=== PATIENT | female | born 1985 | race Caucasian/White ===

== ENCOUNTER 2021-08-17 01:24 | Emergency (ER) | payer MEDICAID, SELFPAY ==
[2021-08-17] VITALS (12 sets, daily range): BP systolic 83–117; BP diastolic 47–80; PULSE 73–107; RESP 11–18; TEMP 37.1; O2SAT 98–100; BMI 19.0
--- NOTE | ~2021-08-17 | CT_ITS ---
EXAMINATION: CT HEAD WITHOUT CONTRAST CT CERVICAL SPINE WITHOUT CONTRAST CLINICAL INFORMATION: Fall COMPARISON: None. TECHNIQUE: Multidetector CT imaging of the head and cervical spine was performed without the use of intravenous contrast. Multiplanar reformats are reviewed. This CT examination was performed using dose optimization techniques as appropriate, variously including the following: *Automated exposure control *Adjustment of mA and/or kV according to patient size (this includes techniques or standardized protocols for targeted exams where dose is matched to indication/reason for exam; i.e. extremities or head) *Use of iterative reconstruction technique DLP: 1108 mGy-cm. FINDINGS: There is no evidence of acute intracranial hemorrhage or territorial infarction. No abnormal mass effect or midline shift is seen. [place] to white matter differentiation is well preserved. No extra-axial fluid collections are identified. The ventricles are normal in size. There is no abnormal attenuation within the brain parenchyma. The osseous structures and soft tissues are normal. The mastoid air cells and visualized portions of the paranasal sinuses are well-aerated. Motion artifact mildly limits assessment of C3 and C4. Atlantooccipital alignment is maintained. The vertebral bodies and posterior elements align normally. No acute fracture or subluxation. Vertebral body heights are maintained. No significant degenerative changes are appreciated. No central canal or foraminal narrowing. The paraspinal soft tissues are unremarkable. The imaged lung apices are clear CT/CT head/brain wo con IMPRESSION: No acute intracranial pathology. No cervical spine fracture or malalignment.
--- NOTE | ~2021-08-17 | XR_ITS ---
EXAMINATION: XR CHEST CLINICAL INFORMATION: Pain. COMPARISON: None TECHNIQUE: Frontal view of the chest was obtained. FINDINGS: Normal symmetric lung volumes. No parenchymal consolidation. No pleural effusion. No pneumothorax. Cardiomediastinal silhouette and pulmonary vascularity are within normal limits. No acute osseous abnormalities. XR/XR chest 1V IMPRESSION: No acute findings
--- NOTE | ~2021-08-17 | CT_ITS ---
EXAMINATION: CT HEAD WITHOUT CONTRAST CT CERVICAL SPINE WITHOUT CONTRAST CLINICAL INFORMATION: Fall COMPARISON: None. TECHNIQUE: Multidetector CT imaging of the head and cervical spine was performed without the use of intravenous contrast. Multiplanar reformats are reviewed. This CT examination was performed using dose optimization techniques as appropriate, variously including the following: *Automated exposure control *Adjustment of mA and/or kV according to patient size (this includes techniques or standardized protocols for targeted exams where dose is matched to indication/reason for exam; i.e. extremities or head) *Use of iterative reconstruction technique DLP: 1108 mGy-cm. FINDINGS: There is no evidence of acute intracranial hemorrhage or territorial infarction. No abnormal mass effect or midline shift is seen. [place] to white matter differentiation is well preserved. No extra-axial fluid collections are identified. The ventricles are normal in size. There is no abnormal attenuation within the brain parenchyma. The osseous structures and soft tissues are normal. The mastoid air cells and visualized portions of the paranasal sinuses are well-aerated. Motion artifact mildly limits assessment of C3 and C4. Atlantooccipital alignment is maintained. The vertebral bodies and posterior elements align normally. No acute fracture or subluxation. Vertebral body heights are maintained. No significant degenerative changes are appreciated. No central canal or foraminal narrowing. The paraspinal soft tissues are unremarkable. The imaged lung apices are clear CT/CT cervical spine wo con IMPRESSION: No acute intracranial pathology. No cervical spine fracture or malalignment.
--- NOTE | 2021-08-17 01:32 | ECG_ITS ---
Test Reason : ALTERED MENTAL STATUS Blood Pressure : / mmHG Vent. Rate : 088 BPM Atrial Rate : 088 BPM P-R Int : 138 ms QRS Dur : 084 ms QT Int : 392 ms P-R-T Axes : 054 033 034 degrees QTc Int : 474 ms Normal sinus rhythm Normal ECG No previous ECGs available Referred By: Melody Escalera Electronically Signed By:CHRISTOPHER CASTELLANO
--- NOTE | 2021-08-17 01:34 | ED_ITS ---
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 Tonight she had one shot of alcohol. Witnesses states they saw her have syncopal event with LOC 1.5 minutes. Pupils were dilated. EMS states the patient also had agonal breathing. They saw her face tighten up to the right and felt it was a focal motor seizure so the patient was given 2mg of versed. Patient has no tongue biting, no incontinence. Given 500cc of NS as well. MD complaint: altered mental status Onset (ago): minute(s) (prior to arrival ) Timing confirmed by: other (bystanders and boyfriend) Severity: severe Consistency of symptoms: constant Context: other (did drink tonight, recent overdose and resulting seizure, only on zoloft now) Associated symptoms: other (facial twitching LOC) Treatments prior to arrival: other (versed 2mg, IVF) Related Data Allergies Allergy/AdvReac Type Severity Reaction Status Date / Time No Known Allergies Allergy Verified 08/17/21 01:31 Review of Systems 2 Review of Systems: ROS unable to be obtained due to altered mental status [facility] Past Medical History Medical History Depression Suicide attempt Social History Social History (Updated 08/17/21 @ 01:35 by Melody Escalera DO) Alcohol intake: current Patient Tobacco Use Status: Tobacco use Unknown Advance Directives: No Physical Exam ED Vital Signs: Vital Signs - 24 hr 08/17/21 01:39 08/17/21 03:10 Temperature 98.7 F Pulse Rate 81 73 Respiratory Rate 16 15 Blood Pressure 117/80 88/48 L Pulse Oximetry 100 100 BMI result Body Mass Index 19.0 Appearance: Somnolent. Nonverbal, able to cough, Moderate acute distress. Eyes: Dilated pupils equal, round and reactive to light 5mm ENT: Pharynx normal. Atraumatic in appearance. Neck: Normal inspection. Neck supple. CVS: Normal heart rate and rhythm. Pulses normal. Respiratory: No respiratory distress. Breath sounds normal. Abdomen: Soft and nontender. Skin: Skin warm and dry. Normal skin color. Normal skin turgor. Extremities: No lower extremity edema. No calf ttp Neuro: diffusely hypotonic, sedated after versed, no twitching noted. Course Course Course Narrative: [facility] records: 06/23 discharge aspiration pneumonia, benzo withdrawal and seizures started on depakote per boyfriend she has not been taking her depakote also on Sunday she passed out but did not have a seizure BP low due to ETOH intoxication Patient placed in physician observation at 345am. The indication for observation is that the patient needs more time to metabolize ETOH. At this time the patient is intoxicated, lungs clear, CV RRR, abd nontender, somnolent. MDM - Altered Mental Status MDM Narrative Medical decision making narrative: 36 yo female with hx of depression, drank ETOH tonight, recent seizure post overdose comes in with AMS, possible syncope and also reported abnormal facial movement characterized by EMS as a focal motor seizure and given versed. She is now very sedated and hypotonic. she is able to cough, no tongue biting no incontinence. full tox/metabolic workup along with EKG. CT head/cspine for syncopal event to rule out trauma. Will observe clinically. Dispo per results and findings. Possible intoxication vs overdose vs postictal state though if it was focal motor I would not suspect the patient to have such an overall confused state and bystanders reported syncope not seizure activity to EMS. Lab Data Result diagrams: 08/17/21 02:13 08/17/21 02:14 Labs: Lab Results 08/17/21 08/17/21 08/17/21 Range/Units 02:13 02:13 02:13 WBC 4.8 (4.8-10.8) X10*3/uL RBC 4.39 (4.20-5.50) X10*6/uL Hgb 11.3 L (12.0-16.0) g/dl Hct 35.0 L (37.0-47.0) % MCV 79.7 L (80.0-98.0) fL MCH 25.7 L (27.0-33.0) pg MCHC 32.3 (31.0-35.0) g/dl RDW 22.4 H (11.0-16.0) % Plt Count 252 (160-400) X10*3/uL MPV 8.4 L (9.4-12.3) fL Immature Gran % (Auto) 0.2 (0.0-0.4) % Neut % (Auto) 51.6 (45-73) % Lymph % (Auto) 38.9 (20-40) % [place] % (Auto) 7.8 (2-11) % Eos % (Auto) 1.1 (0-4) % Baso % (Auto) 0.4 (0-2) % Lymph # (Auto) 1.9 (1.2-4.9) X10*3/uL [place] # (Auto) 0.4 (0.1-1.2) X10*3/uL Eos # (Auto) 0.1 (0.0-0.4) X10*3/uL Baso # (Auto) 0.0 (0.0-0.2) X10*3/uL Abs Immat Gran (auto) 0.01 (0.00-0.03) X10*3/uL Absolute Neuts (auto) 2.5 (2.0-8.3) x10*3/uL Absolute Nucleated RBC 0.000 (0.0-0.012) X10*3/uL Nucleated RBC % (auto) 0.0 (0.0-0.2) /100WBC PT 11.0 (9.9-13.0) SEC INR 1.0 (0.9-1.1) Sodium (135-145) mmol/L Potassium (3.3-5.1) mmol/L Chloride (96-108) mmol/L Carbon Dioxide (22-29) mmol/L Anion Gap (12-20) BUN (9-16) mg/dL Creatinine (0.5-1.4) mg/dL Estim Creat Clear Calc Estimated GFR Random Glucose (60-115) mg/dL Calcium (8.4-10.2) mg/dL Magnesium (1.6-2.6) mg/dL Total Bilirubin (0.0-1.0) mg/dL Direct Bilirubin (0.0-0.5) mg/dL AST (5-31) U/L ALT (0-31) U/L Alkaline Phosphatase (39-117) U/L Ammonia (13-55) umol/L Total Creatine Kinase (26-140) U/L Troponin I High Sens (<3.5-17.0) ng/L Total Protein (6.5-8.0) g/dL Albumin (3.5-5.0) g/dL Lipase (8-78) U/L Beta HCG, Quant mIU/mL Salicylates (15-30) mg/dL Acetaminophen (<30) mcg/mL Valproic Acid (50.0-100.0) mcg/mL Ethyl Alcohol mg/dL COVID-19 (RICHARD) Negative (Negative) COVID-19 Clin Com See Note 08/17/21 08/17/21 08/17/21 Range/Units 02:13 02:13 02:13 WBC (4.8-10.8) X10*3/uL RBC (4.20-5.50) X10*6/uL Hgb (12.0-16.0) g/dl Hct (37.0-47.0) % MCV (80.0-98.0) fL MCH (27.0-33.0) pg MCHC (31.0-35.0) g/dl RDW (11.0-16.0) % Plt Count (160-400) X10*3/uL MPV (9.4-12.3) fL Immature Gran % (Auto) (0.0-0.4) % Neut % (Auto) (45-73) % Lymph % (Auto) (20-40) % [place] % (Auto) (2-11) % Eos % (Auto) (0-4) % Baso % (Auto) (0-2) % Lymph # (Auto) (1.2-4.9) X10*3/uL [place] # (Auto) (0.1-1.2) X10*3/uL Eos # (Auto) (0.0-0.4) X10*3/uL Baso # (Auto) (0.0-0.2) X10*3/uL Abs Immat Gran (auto) (0.00-0.03) X10*3/uL Absolute Neuts (auto) (2.0-8.3) x10*3/uL Absolute Nucleated RBC (0.0-0.012) X10*3/uL Nucleated RBC % (auto) (0.0-0.2) /100WBC PT (9.9-13.0) SEC INR (0.9-1.1) Sodium (135-145) mmol/L Potassium (3.3-5.1) mmol/L Chloride (96-108) mmol/L Carbon Dioxide (22-29) mmol/L Anion Gap (12-20) BUN (9-16) mg/dL Creatinine (0.5-1.4) mg/dL Estim Creat Clear Calc Estimated GFR Random Glucose (60-115) mg/dL Calcium (8.4-10.2) mg/dL Magnesium (1.6-2.6) mg/dL Total Bilirubin (0.0-1.0) mg/dL Direct Bilirubin (0.0-0.5) mg/dL AST (5-31) U/L ALT (0-31) U/L Alkaline Phosphatase (39-117) U/L Ammonia (13-55) umol/L Total Creatine Kinase (26-140) U/L Troponin I High Sens < 3.5 (<3.5-17.0) ng/L Total Protein (6.5-8.0) g/dL Albumin (3.5-5.0) g/dL Lipase (8-78) U/L Beta HCG, Quant < 2 mIU/mL Salicylates (15-30) mg/dL Acetaminophen (<30) mcg/mL Valproic Acid (50.0-100.0) mcg/mL Ethyl Alcohol 497 H* mg/dL COVID-19 (RICHARD) (Negative) COVID-19 Clin Com 08/17/21 08/17/21 08/17/21 Range/Units 02:13 02:14 02:32 WBC (4.8-10.8) X10*3/uL RBC (4.20-5.50) X10*6/uL Hgb (12.0-16.0) g/dl Hct (37.0-47.0) % MCV (80.0-98.0) fL MCH (27.0-33.0) pg MCHC (31.0-35.0) g/dl RDW (11.0-16.0) % Plt Count (160-400) X10*3/uL MPV (9.4-12.3) fL Immature Gran % (Auto) (0.0-0.4) % Neut % (Auto) (45-73) % Lymph % (Auto) (20-40) % [place] % (Auto) (2-11) % Eos % (Auto) (0-4) % Baso % (Auto) (0-2) % Lymph # (Auto) (1.2-4.9) X10*3/uL [place] # (Auto) (0.1-1.2) X10*3/uL Eos # (Auto) (0.0-0.4) X10*3/uL Baso # (Auto) (0.0-0.2) X10*3/uL Abs Immat Gran (auto) (0.00-0.03) X10*3/uL Absolute Neuts (auto) (2.0-8.3) x10*3/uL Absolute Nucleated RBC (0.0-0.012) X10*3/uL Nucleated RBC % (auto) (0.0-0.2) /100WBC PT (9.9-13.0) SEC INR (0.9-1.1) Sodium 145 (135-145) mmol/L Potassium 3.4 (3.3-5.1) mmol/L Chloride 110 H (96-108) mmol/L Carbon Dioxide 21 L (22-29) mmol/L Anion Gap 17 (12-20) BUN 17 H (9-16) mg/dL Creatinine 0.70 (0.5-1.4) mg/dL Estim Creat Clear Calc 97.5 Estimated GFR > 60 Random Glucose 92 (60-115) mg/dL Calcium 8.7 (8.4-10.2) mg/dL Magnesium 1.8 (1.6-2.6) mg/dL Total Bilirubin 0.2 (0.0-1.0) mg/dL Direct Bilirubin < 0.2 (0.0-0.5) mg/dL AST 28 (5-31) U/L ALT 26 (0-31) U/L Alkaline Phosphatase 40 (39-117) U/L Ammonia 16 (13-55) umol/L Total Creatine Kinase 82 (26-140) U/L Troponin I High Sens (<3.5-17.0) ng/L Total Protein 6.3 L (6.5-8.0) g/dL Albumin 3.9 (3.5-5.0) g/dL Lipase 18 (8-78) U/L Beta HCG, Quant mIU/mL Salicylates < 5.0 L (15-30) mg/dL Acetaminophen < 1 (<30) mcg/mL Valproic Acid < 2.0 L (50.0-100.0) mcg/mL Ethyl Alcohol mg/dL COVID-19 (RICHARD) (Negative) COVID-19 Clin Com ECG Data ECG #1: Attestation: I personally reviewed and interpreted this ECG as follows: ECG interpretation date: 08/17/21 ECG interpretation time: 01:51 Interpretation: Rate: 88 Rhythm: NSR [place]: normal Normal P waves. Normal KEYUR. Normal QRS complex. ST T wave : no ANIRUDH, normal qTC: prolonged prior studies: no acute ischemia The study has been interpreted contemporaneously by me. Discharge Plan Discharge Clinical Impression: Alcohol intoxication, Acute alteration in mental status Patient Disposition: Still a Patient
[2021-08-17] MEDS: 0.9 % Sodium Chloride 1,000 ML 999 ML IVCONT (01:46)
[2021-08-17] MEDS: ondansetron HCL 4 MG/2 ML VIAL IVPUSH (01:46)
--- NOTE | 2021-08-17 01:50 | PC.NURSE ---
pt presenting as post ictal. able to open eyes, but solw/unable to respond. pt assisted to get changed by this RN and computed tomography technologist, pt limp while being changed. pt denies any drug or alcohol use beyond 1 reported shot of liquor. pt having hiccups while resting in bed.
[2021-08-17] MEDS: Magnesium Sulfate/H2O 2 GM/50 ML PIGGYBACK IV (02:10)
[2021-08-17 02:18] LABS: MANUAL DIFF FLAG NO
[2021-08-17 02:23] LABS: Basophils Percent Auto 0.4 % (0-2); Eosinophils Absolute Auto 0.1 X10*3/uL (0.0-0.4); Eosinophils Percent Auto 1.1 % (0-4); Hemoglobin 11.3 g/dl (12.0-16.0); Imm Gran Abs Auto 0.01 X10*3/uL (0.00-0.03); Imm Gran Pct Auto 0.2 % (0.0-0.4); Lymphocytes Absolute Auto 1.9 X10*3/uL (1.2-4.9); Lymphocytes Percent Auto 38.9 % (20-40); Mean Corpuscular HGB Conc 32.3 g/dl (31.0-35.0); Mean Corpuscular Hemoglobin 25.7 pg (27.0-33.0); Mean Corpuscular Volume 79.7 fL (80.0-98.0); Mean Platelet Volume 8.4 fL (9.4-12.3); Monocytes Absolute Auto 0.4 X10*3/uL (0.1-1.2); Monocytes Percent Auto 7.8 % (2-11); Neutrophils Absolute Auto 2.5 x10*3/uL (2.0-8.3); Neutrophils Percent Auto 51.6 % (45-73); Platelet Count 252 X10*3/uL (160-400); Red Blood Count 4.39 X10*6/uL (4.20-5.50); Red Cell Distribution Width 22.4 % (11.0-16.0); White Blood Count 4.8 X10*3/uL (4.8-10.8)
[2021-08-17 02:33] LABS: Ethanol 497 mg/dL
[2021-08-17 02:37] LABS: COVID-19 Test Negative (Negative)
[2021-08-17 02:40] LABS: Alanine Aminotransferase 26 U/L (0-31); Albumin Level 3.9 g/dL (3.5-5.0); Alkaline Phosphatase 40 U/L (39-117); Anion Gap 17 (12-20); Aspartate Amino Transferase 28 U/L (5-31); Bilirubin Direct < 0.2 mg/dL (0.0-0.5); Bilirubin Total 0.2 mg/dL (0.0-1.0); Blood Urea Nitrogen 17 mg/dL (9-16); Calcium 8.7 mg/dL (8.4-10.2); Carbon Dioxide 21 mmol/L (22-29); Chloride 110 mmol/L (96-108); Creatinine Clr Calc Pharmacy 97.5; Estimated Glomerular Filt Rate > 60; Glucose Random 92 mg/dL (60-115); Lipase 18 U/L (8-78); Magnesium 1.8 mg/dL (1.6-2.6); Potassium 3.4 mmol/L (3.3-5.1); Salicylate < 5.0 mg/dL (15-30); Sodium 145 mmol/L (135-145); Total Protein 6.3 g/dL (6.5-8.0)
[2021-08-17 02:42] LABS: HCG Quantitative < 2 mIU/mL; Troponin-I High Sensitivity < 3.5 ng/L (<3.5-17.0)
[2021-08-17 02:44] LABS: Ammonia 16 umol/L (13-55)
[2021-08-17 02:44] LABS: Valproate < 2.0 mcg/mL (50.0-100.0)
[2021-08-17 02:56] LABS: Acetaminophen LAB < 1 mcg/mL (<30)
[2021-08-17] MEDS: 0.9 % Sodium Chloride 1,000 ML 999 ML IV (03:16)
--- NOTE | 2021-08-17 07:25 | PC.NURSE ---
Report received from Ed, RN. Patient is becoming more alert at this time. Was able to reorient patient that she was in the hospital. Per patient she just remembers being at work last night and not much else after that. Patient denies having more then one drink. Oriented to time and person. Respirations regular and even. Skin PWD. Changed patient and bed linens as saturated in urine. Patient ambulates to restroom with balanced and steady gait. Will continue to [facility].
--- NOTE | 2021-08-17 09:06 | PC.NURSE ---
Lance called to check in on patient, patient gives consent to update. Patient remains on stretcher, pulled out IV and disconnected montior. Reattached monitor at this time. Patient forgets where she is, but is able to be reoriented. Will continue to monitor.
[2021-08-17 13:08] LABS: Appearance Urine HAZY; Color Urine YELLOW; Glucose Urine UA NEG (NEG); Leukocyte Esterase Urine NEG (NEG); Nitrite Urine NEG (NEG); PH 5.5 (5.0-8.0); Specific Gravity - Urine 1.025 (1.005-1.025); Urine Blood NEG (NEG); Urine Ketones NEG (NEG); Urine Protein NEG (NEG-TRACE)
--- NOTE | 2021-08-17 13:10 | PC.NURSE ---
Patient alert and oriented at this time. Able to ambulate with balanced and steady gait. Talking to significant other on phone and sitting upright in bed. Patient is drinking water. Provider updated. Awaiting disharge.
[2021-08-17 13:19] LABS: Amphetamine Screen Urine Not Detected (Not Detect); Barbiturates, Urine Not Detected (Not Detect); Benzodiazepines Screen Urine POSITIVE (Not Detect); Cannabinoid Screen Urine Not Detected (Not Detect); Cocaine Screen Urine Not Detected (Not Detect); Fentanyl, urine Not Detected (Not Detect); Opiate Screen Urine Not Detected (Not Detect); Phencyclidine Screen Urine Not Detected (Not Detect)
== END 2021-08-17 13:39 | disposition home or self-care (01) ==
PROVIDERS: Emergency Medicine; Emergency Provider Emergency Medicine
DX: F10.921 Alcohol use, unspecified with intoxication delirium (principal); Y90.8 Blood alcohol level of 240 mg/100 ml or more; Z20.822 Contact with and (suspected) exposure to COVID-19; F32.A Depression, unspecified; Z91.51 Personal history of suicidal behavior; Z79.899 Other long term (current) drug therapy
CPT/HCPCS: 36415; 70450; 71045; 72125; 80048; 80076; 80143; 80164; 80179; 80307; 81003; 82077; 82140; 82550; 83690; 83735; 84484; 84702; 85025; 85610; 87635; 93005; 96361; 96365; 96375; 99284; J2405; J3475

== ENCOUNTER 2021-08-24 02:53 | Emergency (ER) | payer MEDICAID, SELFPAY ==
[2021-08-24 03:04] VITALS: BMI 18.3
[2021-08-24 03:15] VITALS: BP 93/62; PULSE 84; RESP 18; TEMP 36.7; O2SAT 100
--- NOTE | 2021-08-24 03:17 | ECG_ITS ---
Test Reason : SYNCOPE Blood Pressure : / mmHG Vent. Rate : 086 BPM Atrial Rate : 086 BPM P-R Int : 138 ms QRS Dur : 074 ms QT Int : 398 ms P-R-T Axes : 036 032 024 degrees QTc Int : 476 ms Normal sinus rhythm Normal ECG When compared with ECG of 17-AUG-2021 01:39, No significant change was found Referred By: Kenia Fall Electronically Signed By:SAHIL BENAVIDEZ MD
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
[2021-08-24] MEDS: ondansetron HCL 4 MG/2 ML VIAL IVPUSH (03:38)
[2021-08-24 03:44] LABS: MANUAL DIFF FLAG NO
[2021-08-24 03:46] LABS: Basophils Percent Auto 0.2 % (0-2); Eosinophils Percent Auto 0.4 % (0-4); Hematocrit 33.4 % (37.0-47.0); Hemoglobin 10.9 g/dl (12.0-16.0); Imm Gran Abs Auto 0.01 X10*3/uL (0.00-0.03); Imm Gran Pct Auto 0.2 % (0.0-0.4); Lymphocytes Absolute Auto 1.4 X10*3/uL (1.2-4.9); Mean Corpuscular HGB Conc 32.6 g/dl (31.0-35.0); Mean Corpuscular Hemoglobin 26.3 pg (27.0-33.0); Mean Corpuscular Volume 80.5 fL (80.0-98.0); Mean Platelet Volume 8.3 fL (9.4-12.3); Monocytes Absolute Auto 0.4 X10*3/uL (0.1-1.2); Monocytes Percent Auto 9.4 % (2-11); Neutrophils Absolute Auto 2.7 x10*3/uL (2.0-8.3); Neutrophils Percent Auto 59.8 % (45-73); Platelet Count 266 X10*3/uL (160-400); Red Blood Count 4.15 X10*6/uL (4.20-5.50); Red Cell Distribution Width 21.4 % (11.0-16.0); White Blood Count 4.6 X10*3/uL (4.8-10.8)
[2021-08-24 03:55] LABS: Lactic Acid 2.4 mmol/L (0.5-2.0)
[2021-08-24 03:57] LABS: Ethanol 376 mg/dL
[2021-08-24 04:03] LABS: Alanine Aminotransferase 30 U/L (0-31); Albumin Level 4.1 g/dL (3.5-5.0); Alkaline Phosphatase 38 U/L (39-117); Anion Gap 14 (12-20); Aspartate Amino Transferase 26 U/L (5-31); Bilirubin Direct < 0.2 mg/dL (0.0-0.5); Bilirubin Total < 0.2 mg/dL (0.0-1.0); Blood Urea Nitrogen 10 mg/dL (9-16); Calcium 8.6 mg/dL (8.4-10.2); Carbon Dioxide 26 mmol/L (22-29); Chloride 108 mmol/L (96-108); Creatinine Clr Calc Pharmacy 70.9; Estimated Glomerular Filt Rate > 60; Glucose Random 90 mg/dL (60-115); Magnesium 1.8 mg/dL (1.6-2.6); Potassium 3.9 mmol/L (3.3-5.1); Sodium 144 mmol/L (135-145); Total Protein 6.5 g/dL (6.5-8.0)
[2021-08-24 04:09] LABS: Troponin-I High Sensitivity < 3.5 ng/L (<3.5-17.0)
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
[2021-08-24 05:42] LABS: Reflex Lactate? Lactic Acid Added
[2021-08-24 05:45] VITALS: RESP 16
--- NOTE | 2021-08-24 05:45 | PC.NURSE ---
pt a&o, denies any sob or chest pain. Review discharge instructions. Pt verbalized understanding
== END 2021-08-24 05:54 | disposition home or self-care (01) ==
PROVIDERS: Emergency Provider Emergency Medicine
DX: F10.129 Alcohol abuse with intoxication, unspecified (principal); Y90.8 Blood alcohol level of 240 mg/100 ml or more; F32.A Depression, unspecified; Z79.899 Other long term (current) drug therapy
CPT/HCPCS: 36415; 80048; 80076; 82077; 83605; 83735; 84484; 85025; 93005; 96374; 99284; J2405

== ENCOUNTER 2023-05-23 18:21 | Inpatient (IN) | payer OTHER, SELFPAY ==
[2023-05-23 18:32] VITALS: BP 130/84; BP 131/85; PULSE 110; PULSE 111; RESP 16; TEMP 36.7; O2SAT 98; O2SAT 99; BMI 20.1
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
[2023-05-23 19:40] LABS: MANUAL DIFF FLAG NO
[2023-05-23 19:42] LABS: Basophils Percent Auto 0.4 % (0-2); Eosinophils Absolute Auto 0.3 X10*3/uL (0.0-0.4); Eosinophils Percent Auto 3.8 % (0-4); Hematocrit 33.7 % (37.0-47.0); Hemoglobin 11.4 g/dl (12.0-16.0); Imm Gran Abs Auto 0.02 X10*3/uL (0.00-0.03); Imm Gran Pct Auto 0.3 % (0.0-0.4); Lymphocytes Absolute Auto 2.4 X10*3/uL (1.2-4.9); Lymphocytes Percent Auto 34.7 % (20-40); Mean Corpuscular HGB Conc 33.8 g/dl (31.0-35.0); Mean Corpuscular Hemoglobin 27.6 pg (27.0-33.0); Mean Corpuscular Volume 81.6 fL (80.0-98.0); Mean Platelet Volume 8.5 fL (9.4-12.3); Monocytes Absolute Auto 0.8 X10*3/uL (0.1-1.2); Monocytes Percent Auto 11.5 % (2-11); Neutrophils Absolute Auto 3.4 x10*3/uL (2.0-8.3); Neutrophils Percent Auto 49.3 % (45-73); Platelet Count 212 X10*3/uL (160-400); Red Blood Count 4.13 X10*6/uL (4.20-5.50); Red Cell Distribution Width 15.9 % (11.0-16.0); White Blood Count 6.8 X10*3/uL (4.8-10.8)
[2023-05-23 19:55] LABS: Alanine Aminotransferase 38 U/L (0-31); Albumin Level 4.2 g/dL (3.5-5.0); Alkaline Phosphatase 53 U/L (39-117); Anion Gap 15 (12-20); Aspartate Amino Transferase 38 U/L (5-31); Bilirubin Total 0.3 mg/dL (0.0-1.0); Blood Urea Nitrogen 5 mg/dL (9-16); Calcium 9.5 mg/dL (8.4-10.2); Carbon Dioxide 23 mmol/L (22-29); Chloride 106 mmol/L (96-108); Creatinine Clr Calc Pharmacy 79.6; Estimated Glomerular Filt Rate > 60; Ethanol 161 mg/dL; Glucose Random 103 mg/dL (60-115); Potassium 3.8 mmol/L (3.3-5.1); Sodium 140 mmol/L (135-145); Total Protein 7.2 g/dL (6.5-8.0)
[2023-05-23 19:59] LABS: Acetaminophen LAB < 3 mcg/mL (<30); Salicylate < 5.0 mg/dL (15-30)
[2023-05-23] MEDS: ALPRAZolam 0.5 MG TABLET PO (21:37)
[2023-05-23] MEDS: traZODone HCL 100 MG TABLET PO (21:37)
[2023-05-23 21:42] LABS: Appearance Urine Clear; Color Urine Yellow; Glucose Urine UA Negative (Negative); Leukocyte Esterase Urine Negative (Negative); Nitrite Urine Negative (Negative); Urine Blood Negative (Negative); Urine Ketones Negative (Negative); Urine Protein Negative (Neg-Trace)
[2023-05-23 21:46] LABS: UPreg QC Valid YES; Urine Pregnancy NEGATIVE (NEGATIVE)
[2023-05-23 21:48] LABS: Amphetamine Screen Urine Not Detected (Not Detect); Barbiturates, Urine Not Detected (Not Detect); Benzodiazepines Screen Urine Not Detected (Not Detect); Cannabinoid Screen Urine Not Detected (Not Detect); Cocaine Screen Urine Not Detected (Not Detect); Fentanyl, urine Not Detected (Not Detect); Opiate Screen Urine Not Detected (Not Detect); Phencyclidine Screen Urine Not Detected (Not Detect)
--- NOTE | 2023-05-24 | ECG_ITS ---
Test Reason : CHECK QT Blood Pressure : / mmHG Vent. Rate : 079 BPM Atrial Rate : 079 BPM P-R Int : 128 ms QRS Dur : 080 ms QT Int : 378 ms P-R-T Axes : -10 036 002 degrees QTc Int : 433 ms Normal sinus rhythm Low voltage QRS Possible Inferior infarct , age undetermined Possible Anterolateral infarct , age undetermined Abnormal ECG When compared with ECG of 24-AUG-2021 03:22, Borderline criteria for Anterior infarct are now Present Borderline criteria for Anterolateral infarct are now Present Borderline criteria for Inferior infarct are now Present T wave inversion more evident in Inferior leads Referred By: Kenia Fall Electronically Signed By:SAHIL BENAVIDEZ MD
[2023-05-24 08:16] VITALS: BP 111/75; PULSE 86; RESP 16; TEMP 36.6; O2SAT 99
--- NOTE | 2023-05-24 08:22 | PC.NURSE ---
Assumed care of patient at 0700, patient appears to be sleeping, respiraitons even and unlabored, no apparent distress. Continue plan of care for Sec 12 inpatient bedsearch
[2023-05-24] MEDS: Loratadine 10 MG TABLET PO (09:06)
[2023-05-24] MEDS: Sertraline HCL 100 MG TABLET 200 MG PO (09:06)
[2023-05-24] MEDS: ARIPiprazole 10 MG TABLET PO (09:06)
[2023-05-24 13:11] LABS: COVID-19 Test Negative (Negative); IDNOW Serial# 152EDE1D
[2023-05-24] MEDS: ALPRAZolam 0.5 MG TABLET PO (17:53)
--- NOTE | 2023-05-24 19:36 | PC.NURSE ---
patient appears as relaxed in milieu, patient asks appropriate requests for resfreshments. patient appears in no distress.
[2023-05-24 19:59] VITALS: BP 121/76; PULSE 89; RESP 16; TEMP 37.1; O2SAT 98
[2023-05-24] MEDS: traZODone HCL 100 MG TABLET PO (20:34)
[2023-05-25 07:19] VITALS: BP 117/82; PULSE 88; RESP 18; TEMP 36.3; O2SAT 99
--- NOTE | 2023-05-25 07:40 | PC.NURSE ---
Assumed care of patient at 0700, patient up eating in bed, offering no complaints to this RN. Continue plan of care for inpatient bedsearch sec 12
[2023-05-25] MEDS: Loratadine 10 MG TABLET PO (08:28)
[2023-05-25] MEDS: ARIPiprazole 10 MG TABLET PO (08:28)
[2023-05-25] MEDS: Sertraline HCL 100 MG TABLET 200 MG PO (08:29)
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
[2023-05-25 12:15] VITALS: BP 109/66; PULSE 89; RESP 16; TEMP 36.7; O2SAT 98
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
[2023-05-25] MEDS: ALPRAZolam 0.5 MG TABLET PO (18:43)
[2023-05-25] MEDS: Nicotine Polacrilex Lozenge 2 MG LOZENGE BUCCAL (18:43)
[2023-05-25 19:53] VITALS: BP 116/70; PULSE 84; RESP 16; TEMP 36.7; O2SAT 99
[2023-05-25] MEDS: traZODone HCL 50 MG TABLET 150 MG PO (21:12)
[2023-05-25] MEDS: Prazosin HCL 1 MG CAPSULE PO (21:32)
[2023-05-26 06:00] VITALS: BP 110/63; PULSE 90; RESP 14; TEMP 36.4; O2SAT 99
[2023-05-26] MEDS: ARIPiprazole 10 MG TABLET PO (09:08)
[2023-05-26] MEDS: Loratadine 10 MG TABLET PO (09:08)
[2023-05-26] MEDS: Sertraline HCL 100 MG TABLET 200 MG PO (09:08)
[2023-05-26 09:16] LABS: Alanine Aminotransferase 32 U/L (0-31); Albumin Level 3.8 g/dL (3.5-5.0); Alkaline Phosphatase 45 U/L (39-117); Anion Gap 10 (12-20); Aspartate Amino Transferase 35 U/L (5-31); Bilirubin Total 0.1 mg/dL (0.0-1.0); Blood Urea Nitrogen 12 mg/dL (9-16); Carbon Dioxide 23 mmol/L (22-29); Chloride 110 mmol/L (96-108); Cholesterol 208 mg/dL (<200); Creatinine Clr Calc Pharmacy 73.6; Estimated Glomerular Filt Rate > 60; Glucose Fasting 96 mg/dL (60-99); HDL Cholesterol 70 mg/dL (>40); LDL Cholesterol Calculated 117 mg/dL (<100); Potassium 4.1 mmol/L (3.3-5.1); Sodium 139 mmol/L (135-145); Total Protein 6.6 g/dL (6.5-8.0); Triglycerides 106 mg/dL (<150)
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
[2023-05-26] MEDS: Nicotine Polacrilex Lozenge 2 MG LOZENGE BUCCAL ×2 (16:51→21:12)
[2023-05-26 20:50] VITALS: BP 123/76; PULSE 83; RESP 16; TEMP 36; O2SAT 99
[2023-05-26] MEDS: ALPRAZolam 0.5 MG TABLET PO (21:04)
[2023-05-26] MEDS: Prazosin HCL 1 MG CAPSULE PO (21:04)
[2023-05-26] MEDS: traZODone HCL 50 MG TABLET 150 MG PO (21:04)
[2023-05-27 09:14] VITALS: BP 103/65; PULSE 80; RESP 16; TEMP 36.3; O2SAT 98
[2023-05-27] MEDS: Sertraline HCL 100 MG TABLET 200 MG PO (09:15)
[2023-05-27] MEDS: ARIPiprazole 10 MG TABLET PO (09:16)
[2023-05-27] MEDS: Loratadine 10 MG TABLET PO (09:16)
[2023-05-27] MEDS: Acetaminophen 325 MG TABLET 650 MG PO (11:56)
[2023-05-27] MEDS: Nicotine Polacrilex Lozenge 2 MG LOZENGE BUCCAL ×2 (14:01→20:30)
[2023-05-27] MEDS: ALPRAZolam 0.5 MG TABLET PO (14:01)
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
[2023-05-27 20:25] VITALS: BP 116/73; PULSE 93; RESP 16; TEMP 36; O2SAT 98
[2023-05-27] MEDS: traZODone HCL 50 MG TABLET 150 MG PO (20:29)
[2023-05-27] MEDS: Prazosin HCL 1 MG CAPSULE PO (20:29)
[2023-05-27] MEDS: hydrOXYzine HCL 25 MG TABLET PO (20:30)
--- NOTE | 2023-05-27 21:45 | PC.NURSE ---
Lydia was given Atarax PO prn for anxiety.
[2023-05-28] MEDS: Acetaminophen 325 MG TABLET 650 MG PO ×2 (05:25→17:07)
--- NOTE | 2023-05-28 05:26 | PC.NURSE ---
Lydia was given Tylenol PO prn for abdominal cramps at 3/10 pain level.
[2023-05-28 08:00] VITALS: BP 109/67; PULSE 80; RESP 16; TEMP 36.3; O2SAT 99
[2023-05-28] MEDS: Sertraline HCL 100 MG TABLET 200 MG PO (08:29)
[2023-05-28] MEDS: Loratadine 10 MG TABLET PO (08:29)
[2023-05-28] MEDS: ARIPiprazole 15 MG TABLET PO (08:29)
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
[2023-05-28] MEDS: Nicotine Polacrilex Lozenge 2 MG LOZENGE BUCCAL ×2 (12:46→20:29)
[2023-05-28 20:20] VITALS: BP 113/71; PULSE 84; RESP 16; TEMP 36.5; O2SAT 99
[2023-05-28] MEDS: ALPRAZolam 0.5 MG TABLET PO (20:29)
[2023-05-28] MEDS: traZODone HCL 50 MG TABLET 150 MG PO (20:29)
[2023-05-28] MEDS: Prazosin HCL 1 MG CAPSULE 2 MG PO (20:29)
--- NOTE | 2023-05-28 21:12 | PC.NURSE ---
Lydia was given Xanax PO prn for elevated anxiety
[2023-05-29 07:45] VITALS: BP 103/60; PULSE 82; RESP 18; TEMP 36.3; O2SAT 99
[2023-05-29] MEDS: Sertraline HCL 100 MG TABLET 200 MG PO (08:53)
[2023-05-29] MEDS: Loratadine 10 MG TABLET PO (08:53)
[2023-05-29] MEDS: ARIPiprazole 15 MG TABLET PO (08:54)
[2023-05-29] MEDS: Acetaminophen 325 MG TABLET 650 MG PO ×2 (08:56→15:34)
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
--- NOTE | 2023-05-29 09:05 | PC.NURSE ---
P c/o abdominal cramping 3/10 pain, Administered PRN Tylenol 650mg
[2023-05-29] MEDS: Nicotine Polacrilex Lozenge 2 MG LOZENGE BUCCAL ×3 (10:34→20:39)
[2023-05-29] MEDS: Ibuprofen 400 MG TABLET PO (14:26)
[2023-05-29] MEDS: hydrOXYzine HCL 25 MG TABLET PO (15:34)
--- NOTE | 2023-05-29 16:42 | PC.NURSE ---
pt experiencing anxiety, PRN hydroxyzine administered
[2023-05-29 20:05] VITALS: BP 109/69; PULSE 84; RESP 18; TEMP 36.6; O2SAT 98
[2023-05-29] MEDS: traZODone HCL 50 MG TABLET 150 MG PO (20:32)
[2023-05-29] MEDS: ALPRAZolam 0.5 MG TABLET PO (20:32)
[2023-05-29] MEDS: Prazosin HCL 1 MG CAPSULE 2 MG PO (20:32)
[2023-05-30 07:20] VITALS: BP 101/57; PULSE 84; RESP 16; TEMP 36.3; O2SAT 95
[2023-05-30] MEDS: ARIPiprazole 15 MG TABLET PO (09:08)
[2023-05-30] MEDS: Loratadine 10 MG TABLET PO (09:08)
[2023-05-30] MEDS: Sertraline HCL 100 MG TABLET 200 MG PO (09:08)
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
[2023-05-30] MEDS: hydrOXYzine HCL 25 MG TABLET PO (13:53)
[2023-05-30] MEDS: Nicotine Polacrilex Lozenge 2 MG LOZENGE BUCCAL (13:53)
[2023-05-30 20:10] VITALS: BP 113/73; PULSE 91; RESP 18; TEMP 36.7; O2SAT 99
[2023-05-30] MEDS: Prazosin HCL 1 MG CAPSULE 2 MG PO (20:15)
[2023-05-30] MEDS: traZODone HCL 50 MG TABLET 150 MG PO (20:16)
[2023-05-30] MEDS: Ibuprofen 400 MG TABLET PO (20:16)
[2023-05-30] MEDS: ALPRAZolam 0.5 MG TABLET PO (20:16)
--- NOTE | 2023-05-31 00:54 | PC.NURSE ---
Lydia was noted to be visible on the milieu but with minimal socialization. She c/o her Prazosin dose stating that the provider had said they would be increasing the dosage tonight. Patint instructed to speak to her provider in the morning regarding the Prazosin dose. Continue Plan of Care
[2023-05-31 07:35] VITALS: BP 110/68; PULSE 82; RESP 16; TEMP 36.7; O2SAT 98
[2023-05-31] MEDS: ARIPiprazole 15 MG TABLET PO (09:34)
[2023-05-31] MEDS: Loratadine 10 MG TABLET PO (09:34)
[2023-05-31] MEDS: Sertraline HCL 100 MG TABLET 200 MG PO (09:34)
[2023-05-31] MEDS: Nicotine Polacrilex Lozenge 2 MG LOZENGE BUCCAL (09:37)
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
== END 2023-05-31 11:30 | disposition home or self-care (01) | DRG 885 ==
LOC: HO.ED 22:14 → HO.PADLT16 05-25 08:59
PROVIDERS: Physician Assistant; Admitting Provider Registered Nurse; Emergency Provider Emergency Medicine; Responsible Provider Registered Nurse; Visit Provider Psychiatry & Neurology Psychiatry
DX: F33.9 Major depressive disorder, recurrent, unspecified (principal); R45.851 Suicidal ideations; F43.10 Post-traumatic stress disorder, unspecified; F17.210 Nicotine dependence, cigarettes, uncomplicated; Z20.822 Contact with and (suspected) exposure to COVID-19; Z71.6 Tobacco abuse counseling; Z79.899 Other long term (current) drug therapy
CPT/HCPCS: 36415; 80053; 80061; 80143; 80179; 80307; 81003; 81025; 85025; 87635; 93005; 99285; S9485

== ENCOUNTER → 2023-05-24 09:23 | Outpatient (BNV) | payer OTHER, SELFPAY | PROVIDERS: Emergency Provider Emergency Medicine; Visit Provider Internal Medicine Cardiovascular Disease | DX: R94.31 Abnormal electrocardiogram [ECG] [EKG] (principal) | CPT/HCPCS: 93010 ==

== ENCOUNTER → 2023-05-25 08:55 | Outpatient (BNV) | payer OTHER, SELFPAY | PROVIDERS: Admitting Provider Registered Nurse; Emergency Provider Emergency Medicine; Responsible Provider Registered Nurse; Visit Provider Registered Nurse | DX: F33.2 Major depressive disorder, recurrent severe without psychotic features (principal); F43.11 Post-traumatic stress disorder, acute | CPT/HCPCS: 90792; 99231; 99232; 99238 ==